=== PATIENT | female | born 1985 | race Caucasian/White ===

== ENCOUNTER 2022-04-01 17:51 | Emergency (ER) | payer OTHER, SELFPAY ==
--- NOTE | ~2022-04-01 | XR_ITS ---
EXAMINATION: XR ankle LT min 3V DATE: 04/01/2022 18:16 INDICATION: Left ankle pain TECHNIQUE: Anteroposterior, lateral, mortise, and additional oblique view of the ankle were obtained. COMPARISON: None. FINDINGS: Bone alignment is normal. There is no fracture. The joint spaces are normal. The soft tissu es are unremarkable. IMPRESSION: 1. No acute osseous abnormality. Reviewed, dictated and finalized at location F.
--- NOTE | ~2022-04-01 | XR_ITS ---
EXAMINATION: XR foot LT min 3V DATE: 04/01/2022 18:16 INDICATION: Left foot pain TECHNIQUE: Dorsoplantar, lateral, and 2 oblique views of the left foot were obtained. COMPARISON: None. FINDINGS: There is a possible nondisplaced fracture at the medial base of the first proximal phalanx. The remaining osseous structures are without acute abnormality. There is mild osteoarthritis at the first metatarsophalangeal joint. IMPRESSION: 1. Possible nondisplaced fracture at the medial base of the first proximal phalanx. Reviewed, dictated and finalized at location F. IMPRESSION: 1. Possible nondisplaced fracture at the medial base of the first proximal phal anx.
--- NOTE | 2022-04-01 17:54 | ED.LOWEXIN ---
HPI - Extremity Injury (Lower) General Stated Complaint: lt foot injury Time Seen by Provider: 04/01/22 17:53 Source: patient Mode of arrival: ambulatory Limitations: no limitations History of Present Illness HPI Narrative: Ms. Mahan is a 36-year-old female patient presenting to the clinic today with complaints of left foot pain/injury. She reports she missed 4 steps at home and her great toe stopped her fall and she is also complaining of some left lateral ankle pain. This occurred around 3:00 today. Related Data Home Medications Medication Instructions Recorded Confirmed gabapentin 100 mg capsule 100 cap BID 04/01/22 04/01/22 levonorgestrel 20 mcg/24 hours (7 1 device intrauterine ONCE 04/01/22 04/01/22 yrs) 52 mg intrauterine device (Mirena) Allergies Allergy/AdvReac Type Severity Reaction Status Date / Time aspartame Allergy Unknown Verified 04/01/22 18:07 clotrimazole Allergy Unknown Verified 04/01/22 18:07 sumatriptan Allergy Unknown Verified 04/01/22 18:07 SUMATRIPTAN SUCCINATE Allergy Unknown Uncoded 04/01/22 18:07 Review of Systems Review of Systems: Pertinent positives per HPI. Patient denies any fever, chills, rash, headache, visual changes, dizziness, cough, runny nose, sore throat, shortness of breath, chest pain, palpitations, nausea, vomiting, diarrhea, constipation, abdominal pain, or any urinary issues. PMFSH Comments At the time of my signature, I reviewed and agree with the nursing past medical, surgical, social, and family history. There is no relevant family history pertinent to the patient complaint. Exam Narrative: General: Well-developed, well nourished, in no apparent distress Head: Normocephalic, atraumatic. Cardio: Regular rate and rhythm, s1 and s2 normal, no murmur appreciated. Resp: Clear to auscultation bilaterally, no rhonchi, rales, wheezing or rubs. Musculoskeletal: No deformity, tender to palpation over the lateral and lateral ankle, pain with flexion and extension against resistance for the great toe, grossly normal range of motion of the ankle, muscle strength strong and equal, peripheral pulse strong, no edema, no cyanosis, normal gait and station Course Course Emergency Course: Portions of this record may have been created with voice recognition software. Level of Care: Express Care Visit Vital Signs Vital signs: Vital signs reviewed MDM - Extremity Injury (Lower) MDM Narrative Medical decision making narrative: At the time of visit patient is resting comfortably on the exam table. X-ray was were obtained and left ankle was negative for fracture however patient does have a fracture of the left great proximal toe phalanx. Postop shoe was given to the patient and she was instructed to wear this for approximately 4 weeks. She voiced understanding of instructions and supportive measures and agrees with the treatment plan. Differential Diagnosis Differential diagnosis: Likely other (Great toe sprain, foot sprain, ankle sprain, ankle fracture, foot fracture, great toe fracture) Imaging Data Attestation: I personally reviewed and interpreted this imaging study as follows: My impression: Negative for any fracture or malalignment of the left ankle, fracture of great proximal toe Radiologist's impression: Close Ankle X-Ray (Signed) KathleenVladimir - 04/01/22 Launch[facility] [address] XRay Report Signed Patient: Joyce Mahan : 1985 MR#: [id number] Age/Sex: 36 / F Acct:[id number] Loc: [facility]? ? ADM Date: 04/01/22Attending Dr: Ordering Physician: Joe Bloom APRN Date of Service: 04/01/22 Procedure(s): XR ankle LT min 3V Accession Number(s): [id number] cc: Joe Bloom APRN; UNKNOWN,DOCTOR~ EXAMINATION: XR ankle LT min 3V DATE: 04/01/2022 18:16 INDICATION: Left ankle pain TECHNIQUE: Anteropos
[2022-04-01 18:03] VITALS: BP 106/66; PULSE 72; RESP 18; TEMP 36.4; O2SAT 100
== END 2022-04-01 18:45 | disposition home or self-care (01) ==
PROVIDERS: Emergency Provider Nurse Practitioner Family
DX: S93.402A Sprain of unspecified ligament of left ankle, initial encounter (principal); W10.9XXA Fall (on) (from) unspecified stairs and steps, initial encounter; S92.402A Displaced unspecified fracture of left great toe, initial encounter for closed fracture
CPT/HCPCS: 73610; 73630; 99214; G0463